=== PATIENT | female | born 1990 | race Caucasian/White ===

== ENCOUNTER 2017-10-23 11:01 | Emergency (ER) | payer BC ==
--- NOTE | 2017-10-23 12:34 | ED PDOC ---
HPI: Female Pain Time Seen by Provider: 10/23/17 11:09 Chief Complaint (Nursing): Female Genitourinary Chief Complaint (Provider): Vaginal Bleeding History Per: Patient History/Exam Limitations: no limitations Onset/Duration Of Symptoms: Days (x1) Current Symptoms Are (Timing): Still Present Additional Complaint(s): 26 y/o female at 6 weeks with LMP on 09/12 presenting with vaginal bleeding since this morning. She states the bleeding was spotty at first, but then had clots. Patient is also reporting mild crampy abdominal pain. Past Medical History Reviewed: Historical Data, Nursing Documentation, Vital Signs Vital Signs: Last Vital Signs Temp 98 F 10/23/17 11:26 Pulse 70 10/23/17 11:26 Resp 16 10/23/17 11:26 BP 130/90 10/23/17 11:26 Pulse Ox 100 10/23/17 11:26 - Medical History PMH: No Chronic Diseases - Surgical History Surgical History: No Surg Hx - Family History Family History: States: Unknown Family Hx - Home Medications Home Medications: Ambulatory Orders Medication Instructions Recorded Nitrofurantoin Macrocrystals 100 mg PO BID #14 cap 10/23/17 [Macrobid] Vit Calc,Iron,Folic 1 each PO DAILY #30 tablet 10/23/17 [ Vitamins] - Allergies Allergies/Adverse Reactions: Allergies Allergy/AdvReac Type Severity Reaction Status Date / Time No Known Allergies Allergy Verified 10/23/17 11:15 Review of Systems ROS Statement: Except As Marked, All Systems Reviewed And Found Negative Gastrointestinal: Positive for: Abdominal Pain Genitourinary Female: Positive for: Vaginal Bleeding Physical Exam - Reviewed Nursing Documentation Reviewed: Yes Vital Signs Reviewed: Yes - Physical Exam Appears: Positive for: Non-toxic, No Acute Distress Head Exam: Positive for: ATRAUMATIC, NORMAL INSPECTION, NORMOCEPHALIC Skin: Positive for: Normal Color, Warm, Dry. Negative for: Rash Eye Exam: Positive for: EOMI, Normal appearance, PERRL Neck: Positive for: Normal, Painless ROM, Supple Cardiovascular/Chest: Positive for: Regular Rate, Rhythm. Negative for: Murmur Respiratory: Positive for: Normal Breath Sounds. Negative for: Respiratory Distress Gastrointestinal/Abdominal: Positive for: Tenderness (mild superpubic tenderness ). Negative for: Guarding, Rebound Back: Positive for: Normal Inspection. Negative for: L CVA Tenderness, R CVA Tenderness, Vertebral Tenderness Extremity: Positive for: Normal ROM. Negative for: Pedal Edema, Deformity Neurologic/Psych: Positive for: Alert, Oriented. Negative for: Motor/Sensory Deficits - Laboratory Results Result Diagrams: 10/23/17 11:45 10/23/17 11:45 - ECG O2 Sat by Pulse Oximetry: 100 (RA) - Physician Consult Information Time Consulting Physican Contacted: 13:51 Physician Contacted: Dayna Anderson Outcome Of Conversation: Case discussed, can d/c home to follow-up next week in office for repeat beta. Medical Decision Making Medical Decision Makin:30 Impression: Vaginal bleeding in Plan: --Blood type and screen --Beta-HCG --CMP --Urine --Urine dipstick --CBC --PTT/PT --US OB 1st trimster and transvag --Reevaluation ----- Scribe Attestation: Documented by Rishi Adams, acting as a scribe for Fabi Dubon MD. Provider Scribe Attestation: All medical record entries made by the Scribe were at my direction and personally dictated by me. I have reviewed the chart and agree that the record accurately reflects my personal performance of the history, physical exam, medical decision making, and the department course for this patient. I have also personally directed, reviewed, and agree with the discharge instructions and disposition. ----- Time: 1422 ABDOMEN/PELVIS/TRANSVAG US RESULTS FINDINGS: UTERUS: The uterus measures 7.9 x 5.5 x 4.3 cm and is anteverted with a nonfocal cervix. The endometrium is 10 mm in thickness with inhomogeneous echotexture and no defined intrauterine gestation at this time. No definitive adnexal compartment for other at ectopic gestation is appreciable at this time. Consider potential early intrauterine gestation nonvisualized versus failure of gestation. Ectopic gestation is not completely excluded. Clinical and sonographic follow-up are advised. Small hypoechoic structure seen anterior to the uterine fundus abutting it measuring 0.7 x 1.2 x 0.7 cm with a small posterior hypoechoic nodular shaped structure measure 1.7 by 1.3 x 1.4 cm abutting posterior fundus. Both may represent pedunculated myomata. CERVIX: As above. RIGHT OVARY: Measures 3.5 x 2.6 x 1.9 cm. No mass. Normal flow. LEFT OVARY: Measures 2.6 x 2.3 x 1.4 cm. No mass. Normal flow. FREE FLUID: None. OTHER FINDINGS: None. IMPRESSION: 1. No definite intrauterine gestation appreciable with inhomogeneous endometrial echotexture appreciated diffusely. Consider potential early nonvisualized intrauterine gestation though failure is not excluded. No defined ectopic gestation is appreciable at this time though this is not excluded either. Serial beta HCG analysis is advised as well as one-week follow -up transvaginal pelvic ultrasound. 2. No suspicious adnexal findings. Two small hypoechoic structures with 1 seen anterior and the other seen posterior to the mid fundus may reflect pedunculated fibroids. No prior comparison available. MRI can be utilized for further characterization if clinically warranted. 15:30 UA reveals UTI, pt called and notified of results, Rx Macrobid transmitted to [facility]. Scribe Attestation: Documented by Samantha Blanco, acting as a scribe for Dr. Fbai Dubon. Provider Scribe Attestation: All medical record entries made by the Scribe were at my direction and personally dictated by me. I have reviewed the chart and agree that the record accurately reflects my personal performance of the history, physical exam, medical decision making, and the department course for this patient. I have also personally directed, reviewed and agree with the discharge instructions and disposition. Disposition - Clinical Impression Clinical Impression: Threatened , UTI (urinary tract infection) during - Disposition Referrals: Dayna Anderson MD [Staff Provider] - Disposition: Routine/Home Disposition Time: 13:52 Condition: STABLE Additional Instructions: FOLLOW-UP WITH DR. ANDERSON NEXT WEEK FOR REPEAT BETA HCG. Prescriptions: Nitrofurantoin Macrocrystals [Macrobid] 100 mg PO BID #14 cap Vit Calc,Iron,Folic [ Vitamins] 1 each PO DAILY #30 tablet Instructions: Threatened Miscarriage, Urinary Tract Infection, Adult (DC) Forms: [facility] (I[place]ic)
[2017-10-23 12:37] LABS: BASO # 0.1 K/uL (0.0-0.2); BASO % 0.7 % (0.0-2.0); EOS # 0.1 K/uL (0.0-0.7); EOS % 0.7 % (0.0-4.0); HEMOGLOBIN 13.1 g/dL (12.0-16.0); LYMPH # 1.6 K/uL (1.0-4.3); LYMPH % 16.5 % (20.0-40.0); MEAN CELL VOLUME 93.6 fl (81.0-99.0); MEAN CORPUSCULAR HEMOGLOBIN 32.1 pg (27.0-31.0); MEAN CORPUSCULAR HGB CONC 34.3 g/dL (33.0-37.0); MEAN PLATELET VOLUME 7.9 fl (7.2-11.7); MONO # 0.6 K/uL (0.0-0.8); NEUT # 7.1 K/uL (1.8-7.0); NEUT % 76.1 % (50.0-75.0); NRBC % 0.1 % (0.0-0.0); RBC 4.07 Mil/uL (3.80-5.20); RED CELL DISTRIBUTION WIDTH 12.5 % (11.5-14.5); WHITE BLOOD COUNT 9.4 K/uL (4.8-10.8)
[2017-10-23 12:44] LABS: PROTHROMBIN TIME 11.2 Seconds (9.8-13.1)
[2017-10-23 12:50] LABS: ALB/GLOB RATIO 1.5 (1.0-2.1); ALBUMIN 4.4 g/dL (3.5-5.0); ALT/SGPT 26 U/L (9-52); AST/SGOT 28 U/L (14-36); BLOOD UREA NITROGEN 12 mg/dl (7-17); CALCIUM 9.3 mg/dL (8.4-10.2); GFR AFRICAN-AMERICAN > 60; GFR NON-AFRICAN AMERICAN > 60
--- NOTE | 2017-10-23 14:24 | US ---
PROCEDURE: OB Pelvic Ultrasound HISTORY: Vag bleeding ; last which appeared 09/04/2017 suggests current gestational age of 5 weeks 6 days. COMPARISON: None available. FINDINGS: UTERUS: The uterus measures 7.9 x 5.5 x 4.3 cm and is anteverted with a nonfocal cervix. The endometrium is 10 mm in thickness with inhomogeneous echotexture and no defined intrauterine gestation at this time. No definitive adnexal compartment for other at ectopic gestation is appreciable at this time. Consider potential early intrauterine gestation nonvisualized versus failure of gestation. Ectopic gestation is not completely excluded. Clinical and sonographic follow-up are advised. Small hypoechoic structure seen anterior to the uterine fundus abutting it measuring 0.7 x 1.2 x 0.7 cm with a small posterior hypoechoic nodular shaped structure measure 1.7 by 1.3 x 1.4 cm abutting posterior fundus. Both may represent pedunculated myomata. CERVIX: As above. RIGHT OVARY: Measures 3.5 x 2.6 x 1.9 cm. No mass. Normal flow. LEFT OVARY: Measures 2.6 x 2.3 x 1.4 cm. No mass. Normal flow. FREE FLUID: None. OTHER FINDINGS: None. IMPRESSION: 1. No definite intrauterine gestation appreciable with inhomogeneous endometrial echotexture appreciated diffusely. Consider potential early nonvisualized intrauterine gestation though failure is not excluded. No defined ectopic gestation is appreciable at this time though this is not excluded either. Serial beta HCG analysis is advised as well as one-week follow-up transvaginal pelvic ultrasound. 2. No suspicious adnexal findings. Two small hypoechoic structures with 1 seen anterior and the other seen posterior to the mid fundus may reflect pedunculated fibroids. No prior comparison available. MRI can be utilized for further characterization if clinically warranted.
[2017-10-23 14:44] LABS: SQUAMOUS EPITHIAL < 1 /hpf (0-5); URINE BACTERIA FEW (<OCC); URINE BILIRUBIN NEGATIVE (NEGATIVE); URINE BLOOD LARGE (NEGATIVE); URINE CLARITY SLIGHTY-CLOUDY (Clear); URINE COLOR YELLOW (YELLOW); URINE GLUCOSE (UA) NEG (Normal); URINE LEUKOCYTE ESTERASE NEG Leu/uL (Negative); URINE PROTEIN 30 mg/dL (NEGATIVE); URINE UROBILINOGEN 0.2-1.0 mg/dL (0.2-1.0)
[2017-10-23 15:04] VITALS: BP 127/79; PULSE 76; RESP 15; TEMP 98.2
[2017-10-23 15:31] VITALS: O2SAT 100
== END 2017-10-23 15:05 | disposition home or self-care (01) ==
LOC: H.ER 11:01
DX: O20.0 Threatened abortion (principal); O23.40 Unspecified infection of urinary tract in pregnancy, unspecified trimester